=== PATIENT | female | born 1955 | race Caucasian/White ===

== ENCOUNTER → 2016-06-19 | Outpatient (CLI) | payer OTHER ==
[~2016-06-19] MED LIST: ALDACTONE25 M1 PO; ASPIRIN ADULT L81 MG PO; EZETIMIBE10 M1 PO; HYDRODIURIL PO; LISINOPRIL10 M1 PO; LOPRESSOR50 M1 PO; METFORMIN1000 MG PO; NEURONTIN600 MG PO; NITRO-BID21 T; OXYCODONE5 M1 PO; VITAMIN D5000 I3 PO; ZOCOR80 MG PO
== END | disposition home or self-care (01) ==
LOC: CARD 15:49
DX: I25.10 Atherosclerotic heart disease of native coronary artery without angina pectoris (principal); I10 Essential (primary) hypertension; I21.4 Non-ST elevation (NSTEMI) myocardial infarction; E78.2 Mixed hyperlipidemia; I08.2 Rheumatic disorders of both aortic and tricuspid valves; Z95.5 Presence of coronary angioplasty implant and graft

== ENCOUNTER → 2019-07-15 | Outpatient (CLI) | payer OTHER | END | disposition home or self-care (01) | LOC: RAD 13:58 | DX: R52 Pain, unspecified (principal); W19.XXXA Unspecified fall, initial encounter; Y93.89 Activity, other specified; Y92.89 Other specified places as the place of occurrence of the external cause; Y99.0 Civilian activity done for income or pay ==

== ENCOUNTER 2023-04-13 08:05 | Emergency (ER) | payer OTHER ==
[~2023-04-13] VITALS: Ht 162.5 cm; Wt 65.8 kg
[2023-04-13] MEDS ORDERED: Acetaminophen/Hydrocodone 5 MG/325 MG TABLET PO ONE (08:40)
[2023-04-13 10:22] LABS: BILIRUBIN Negative (Negative); BLOOD Trace-Lysed (Negative); CLARITY Clear (Clear); COLOR Yellow (Yellow); GLUCOSE 3+ (Negative); KETONE Trace (Negative); LEUKO ESTERASE 1+ (Negative); NITRITE Negative (Negative); SPECIFIC GRAVITY 1.025 (1.001-1.030); UROBILINOGEN 0.2 E.U./dl (0.0-1.0)
[2023-04-13 10:47] LABS: MUCOUS 1+; WBC 16-20 wbc/hpf (0-5)
[2023-04-13] MEDS ORDERED: OMNICEF300 MG PO (11:12)
[2023-04-13] MEDS ORDERED: PERCOCET 5-3251 EACH PO (11:14)
== END 2023-04-13 12:00 | disposition home or self-care (01) ==
LOC: ED 08:05
PROVIDERS: Student in an Organized Health Care Education/Training Program
DX: N39.0 Urinary tract infection, site not specified (principal); N32.1 Vesicointestinal fistula; I25.10 Atherosclerotic heart disease of native coronary artery without angina pectoris; I25.2 Old myocardial infarction; I10 Essential (primary) hypertension; E11.9 Type 2 diabetes mellitus without complications; Z88.2 Allergy status to sulfonamides; Z88.1 Allergy status to other antibiotic agents; Z91.040 Latex allergy status; Z88.8 Allergy status to other drugs, medicaments and biological substances; Z98.51 Tubal ligation status; Z95.5 Presence of coronary angioplasty implant and graft

== ENCOUNTER → 2023-06-17 | Outpatient (CLI) | payer OTHER ==
[~2023-06-17] MED LIST changes: +FARXIGA10 M1 PO; +OMNICEF300 MG PO; +PERCOCET 5-3251 EACH PO; +PIOGLITAZONE HC30 MG PO; +ZESTORETIC 10-1 EACH PO; +ZETIA10 MG PO
[2023-06-17 15:48] LABS: BASO # 0.1 10*3/uL (0.0-0.1); BASO % 0.8 % (0.0-1.0); EOS # 0.3 10*3/uL (0.0-0.4); EOS % 2.9 % (1.0-4.0); HEMATOCRIT 36.7 % (37.0-47.0); LYMPH # 2.1 10*3/uL (1.3-4.4); LYMPH % 22.2 % (27.0-41.0); MEAN CELL VOLUME 88.6 fl (81.0-99.0); MEAN CORPUSCULAR HGB 26.6 pg (27.0-31.0); MEAN PLATELET VOLUME 9.1 fl (9.6-12.3); MONO # 0.9 10*3/uL (0.1-1.0); MONO % 9.2 % (3.0-9.0); NEUT # 6.1 10*3/uL (2.3-7.9); NEUT % 64.3 % (47.0-73.0); PLATELET COUNT AUTOMATED 507 10*3/uL (130-400); RED BLOOD COUNT 4.14 10*6/uL (4.10-5.10); WHITE BLOOD COUNT 9.6 10*3/uL (4.8-10.8)
[2023-06-17 16:06] LABS: BILIRUBIN Negative (Negative); BLOOD 3+ (Negative); CLARITY Turbid (Clear); COLOR Yellow (Yellow); GLUCOSE 3+ (Negative); KETONE Negative (Negative); LEUKO ESTERASE 2+ (Negative); NITRITE Negative (Negative); PH 5.5 (4.5-8.0); SPECIFIC GRAVITY 1.025 (1.001-1.030); UROBILINOGEN 0.2 E.U./dl (0.0-1.0)
[2023-06-17 16:27] LABS: WBC TNTC wbc/hpf (0-5)
[2023-06-17 16:33] LABS: ALKALINE PHOSPHATASE 83 U/L (46-116); BUN 31 mg/dl (9-23); CHLORIDE 103 mmol/L (98-107); FREE T4 1.25 ng/dl (0.89-1.76); POTASSIUM 4.1 mmol/L (3.4-5.1); SGPT/ALT 14 U/L (5-49); TOTAL PROTEIN 7.5 gm/dL (6.0-8.0)
[2023-06-17 20:31] LABS: VITAMIN D, 25-HYDROXY 79.3 ng/mL (30-100)
[2023-06-18 08:10] LABS: HEPATITIS B SURFACE AB Non Reactive (.); HEPATITIS B SURFACE AG Negative (Negative); THYROID PEROXIDASE (TPO) AB 15 IU/mL (0-34)
[2023-06-18 12:08] LABS: ANTI-DSDNA ANTIBODIES <1 IU/mL (0-9); ANTI-RNP ANTIBODIES 1.7 AI (0.0-0.9); ANTISCLERODERMA-70 AB <0.2 AI (0.0-0.9); CCP ANTIBODIES IGG/IGA 4 units (0-19); SJOGREN ANTI-SS-A <0.2 AI (0.0-0.9); SJOREN AB, ANTI-SS-B <0.2 AI (0.0-0.9)
[2023-06-19 19:06] LABS: TB1 Ag VALUE 0.06 IU/mL (.)
== END ==
LOC: LAB 14:34
PROVIDERS: ATTEND Internal Medicine Rheumatology
DX: Z11.59 Encounter for screening for other viral diseases (principal); T14.8XXA Other injury of unspecified body region, initial encounter; R76.8 Other specified abnormal immunological findings in serum; M19.032 Primary osteoarthritis, left wrist; M19.031 Primary osteoarthritis, right wrist; M19.042 Primary osteoarthritis, left hand; M19.041 Primary osteoarthritis, right hand; E55.9 Vitamin D deficiency, unspecified; M79.89 Other specified soft tissue disorders; M25.432 Effusion, left wrist; M25.431 Effusion, right wrist; M45.0 Ankylosing spondylitis of multiple sites in spine; R94.6 Abnormal results of thyroid function studies; M77.8 Other enthesopathies, not elsewhere classified; X58.XXXA Exposure to other specified factors, initial encounter; Y93.89 Activity, other specified; Y92.89 Other specified places as the place of occurrence of the external cause; Y99.8 Other external cause status

== ENCOUNTER 2023-06-19 14:36 | Emergency (ER) | payer OTHER ==
[~2023-06-19] VITALS: Ht 157.4 cm; Wt 65.8 kg
[~2023-06-19 14:36] MED LIST changes: -FARXIGA10 M1 PO; -PIOGLITAZONE HC30 MG PO; -ZESTORETIC 10-1 EACH PO; -ZETIA10 MG PO
[2023-06-19] MEDS ORDERED: FARXIGA10 M1 PO (14:49)
[2023-06-19] MEDS ORDERED: ZETIA10 MG PO (14:50)
[2023-06-19] MEDS ORDERED: ZESTORETIC 10-1 EACH PO (14:50)
[2023-06-19] MEDS ORDERED: PIOGLITAZONE HC30 MG PO (14:51)
[2023-06-19 15:39] LABS: BASO # 0.1 10*3/uL (0.0-0.1); BASO % 0.7 % (0.0-1.0); EOS # 0.2 10*3/uL (0.0-0.4); EOS % 2.2 % (1.0-4.0); HEMATOCRIT 34.3 % (37.0-47.0); LYMPH % 19.6 % (27.0-41.0); MEAN CELL VOLUME 89.1 fl (81.0-99.0); MEAN CORPUSCULAR HGB CONC 30.3 g/dl (33.0-37.0); MONO # 0.9 10*3/uL (0.1-1.0); MONO % 8.8 % (3.0-9.0); NEUT # 6.8 10*3/uL (2.3-7.9); PLATELET COUNT AUTOMATED 478 10*3/uL (130-400); RED BLOOD COUNT 3.85 10*6/uL (4.10-5.10)
[2023-06-19] MEDS ORDERED: SODIUM CHLORIDE 0.9% 1,000 ML IV ONE (15:50)
[2023-06-19] MEDS ORDERED: Ceftriaxone Sodium 1 GM/10 ML SYR IV ONE (15:50)
[2023-06-19 15:57] LABS: BUN 30 mg/dl (9-23); CHLORIDE 104 mmol/L (98-107); POTASSIUM 4.3 mmol/L (3.4-5.1)
[2023-06-19] MEDS ORDERED: OMNICEF300 MG PO (16:54)
== END 2023-06-19 17:45 | disposition home or self-care (01) ==
LOC: ED 14:36
PROVIDERS: Nurse Practitioner Family
DX: N39.0 Urinary tract infection, site not specified (principal); I25.10 Atherosclerotic heart disease of native coronary artery without angina pectoris; I25.2 Old myocardial infarction; I10 Essential (primary) hypertension; E11.9 Type 2 diabetes mellitus without complications; Z87.442 Personal history of urinary calculi; Z88.2 Allergy status to sulfonamides; Z88.1 Allergy status to other antibiotic agents; Z88.8 Allergy status to other drugs, medicaments and biological substances; Z91.040 Latex allergy status; Z98.51 Tubal ligation status; Z98.890 Other specified postprocedural states; Z95.5 Presence of coronary angioplasty implant and graft

== ENCOUNTER 2025-01-11 16:28 | Emergency (ER) | payer MEDICARE ==
[~2025-01-11] VITALS: Wt 81.0 kg
[~2025-01-11 16:28] MED LIST changes: +FARXIGA10 M1 PO; +PIOGLITAZONE HC30 MG PO; +ZESTORETIC 10-1 EACH PO; +ZETIA10 MG PO
[2025-01-11 17:14] LABS: BILIRUBIN Negative (Negative); BLOOD Negative (Negative); CLARITY Clear (Clear); COLOR Yellow (Yellow); KETONE Negative (Negative); LEUKO ESTERASE Negative (Negative); NITRITE Negative (Negative); PH 6.0 (4.5-8.0); SPECIFIC GRAVITY >= 1.030 (1.001-1.030); UROBILINOGEN 0.2 E.U./dl (0.0-1.0)
[2025-01-11 17:24] LABS: BASO # 0.1 10*3/uL (0.0-0.1); BASO % 1.1 % (0.0-1.0); EOS # 0.8 10*3/uL (0.0-0.4); EOS % 7.7 % (1.0-4.0); MEAN CELL VOLUME 94.7 fl (81.0-99.0); MEAN CORPUSCULAR HGB 28.1 pg (27.0-31.0); MEAN PLATELET VOLUME 8.6 fl (9.6-12.3); MONO # 1.1 10*3/uL (0.1-1.0); MONO % 11.1 % (3.0-9.0); NEUT # 5.6 10*3/uL (2.3-7.9); NEUT % 57.7 % (47.0-73.0); NUCLEATED RED BLOOD CELL 0.0 10*3/uL (0.0-0.0); NUCLEATED RED BLOOD CELL 0.2 % (0.0-0.0); PLATELET COUNT AUTOMATED 566 10*3/uL (130-400); RED CELL DISTRI WIDTH 15.2 % (0-14.5)
[2025-01-11 17:36] LABS: MUCOUS TRACE; RBC 0-2 rbc/hpf (0-2); WBC 0-2 wbc/hpf (0-5)
[2025-01-11 17:45] LABS: BUN 35.0 mg/dl (9-23)
[2025-01-11 17:51] LABS: ACT PARTIAL THROMBO TIME 27.8 SECONDS (20.0-32.1)
== END 2025-01-11 19:29 | disposition home or self-care (01) ==
LOC: ED 16:28
PROVIDERS: Emergency Medicine
DX: D64.9 Anemia, unspecified (principal); N93.8 Other specified abnormal uterine and vaginal bleeding; I25.10 Atherosclerotic heart disease of native coronary artery without angina pectoris; I25.2 Old myocardial infarction; I10 Essential (primary) hypertension; E11.9 Type 2 diabetes mellitus without complications; Z87.442 Personal history of urinary calculi; Z88.2 Allergy status to sulfonamides; Z88.1 Allergy status to other antibiotic agents; Z88.8 Allergy status to other drugs, medicaments and biological substances; Z91.040 Latex allergy status; Z79.01 Long term (current) use of anticoagulants

== ENCOUNTER → 2025-01-23 | Outpatient (CLI) | payer MEDICARE | END | disposition home or self-care (01) | LOC: RAD 16:33 | PROVIDERS: ATTEND Physician Assistant | DX: M17.11 Unilateral primary osteoarthritis, right knee (principal); L94.2 Calcinosis cutis; M85.88 Other specified disorders of bone density and structure, other site ==